=== PATIENT | female | born 2000 | race Caucasian/White ===

== ENCOUNTER 2023-05-03 19:17 | Emergency (ER) | payer SELFPAY ==
[2023-05-03 19:51] LABS: #Basophils 0.1 10x3/uL (0.0-0.2); #Eosinphils 0.1 10x3/uL (0.0-0.5); #Monocytes 0.6 10x3/uL (0.0-1.1); #Neutrophils 6.4 10x3/uL (1.5-8.4); %Basophils 0.7 % (0.0-2.0); %Eosinophils 0.7 % (0.0-6.0); %Lymphocytes 34.3 % (18.0-47.0); %Monocytes 5.5 % (0.0-10.0); %Neutrophils 57.2 % (40.0-75.0); Hematocrit 41.4 % (34.9-44.5); Hemoglobin 14.1 g/dL (12.0-15.5); Mean Corpuscular HGB CONC 34.1 g/dL (32.0-36.0); Mean Platelet Volume 8.2 fl (7.4-10.4); Platelet Count 479 10x3/uL (150-450); RBC Distribution Width 12.7 % (11.5-14.5); Red Blood Cell (RBC) Count 4.87 10x6/uL (3.90-5.03); White Blood Cell (WBC) Count 11.2 10x3/uL (3.5-10.5)
[2023-05-03 20:00] LABS: ALT (SGPT) 40 U/L (8-55); AST (SGOT) 31 U/L (5-34); Acetaminophen Less than 10 mcg/mL (10.0-30.0); Albumin 4.7 g/dL (3.5-5.0); Alcohol 158.2 mg/dL (Less than 10); Alcohol 158.3 mg/dL (Less than 10); Alkaline Phosphatase 96 U/L (40-110); Anion Gap 18 mmol/L (10-20); BUN (Urea Nitrogen) 7 mg/dL (7.0-18.7); Bilirubin, Total 0.3 mg/dL (0.2-1.2); Calc. Creatinine Clearance 0 mL/min (70-130); Calcium 9.2 mg/dL (7.8-10.44); Carbon Dioxide 16 mmol/L (22-29); Chloride 108 mmol/L (98-107); Estimated GFR 115; Globulin 3.5 g/dL (2.4-3.5); Glucose 90 mg/dL (70-105); Protein, Total 8.2 g/dL (6.0-8.3); Salicylate Less than 8.0 mg/dL (15.0-30.0); Sodium 138 mmol/L (136-145)
[2023-05-03 20:02] LABS: Bilirubin Neg (Negative); Blood, Urine 250 (Negative); Clarity Clear (Clear); Glucose, Urine (Dipstick) Normal (Negative); Ketone, Urine Negative (Negative); Leukocyte Negative (Negative); Nitrite Negative (Negative); Protein, Urine (Dipstick) 15 mg/dl (Neg-Trace); Urobilinogen Normal mg/dL (Less than 2)
[2023-05-03 20:10] LABS: Amphetamine Detected (NotDetected); Barbiturates Screen Not Detected (NotDetected); Benzodiazepine Screen Not Detected (NotDetected); Cocaine Metabolite Screen Not Detected (NotDetected); Methadone Not Detected (NotDetected); Methamphetamine Detected (NotDetected); Opiate Screen Not Detected (NotDetected); Oxycodone Screen Not Detected (NotDetected); Phencyclidine (PCP) Not Detected (NotDetected); THC/Cannabinoid Screen Not Detected (NotDetected); Tricyclic Screen Not Detected (NotDetected)
[2023-05-03 20:11] LABS: Bacteria/HPF 1+ HPF (None Seen); CAUTI Indications for Culture Dysuria,urgency,freq; RBC/HPF 0-3 HPF (0-3); Squamous Epithelial 0-3 HPF (0-3); Urine Culture Reflex No No; WBC/HPF 0-3 HPF (0-3)
[2023-05-03] MEDS ORDERED: Nicotine 7 MG PATCH TOP SCH (21:15)
[2023-05-03] MEDS ORDERED: Lorazepam 0.5 MG TAB ONE (21:43)
[2023-05-04] MEDS ORDERED: Nicotine 14 MG PATCH TOP SCH (02:00)
== END 2023-05-04 10:35 | disposition home or self-care (01) ==
LOC: CSHERS 19:17
DX: F10.129 Alcohol abuse with intoxication, unspecified (principal); F32.A Depression, unspecified; F17.290 Nicotine dependence, other tobacco product, uncomplicated
CPT/HCPCS: 36415; 80053; 80306; 80307; 81001; 85025; 93005

== ENCOUNTER 2024-07-05 20:43 | Emergency (ER) | payer OTHER, SELFPAY ==
[2024-07-05] MEDS ORDERED: Benzonatate 100 MG CAP ONE (21:17)
== END 2024-07-05 22:00 | disposition home or self-care (01) ==
LOC: CSHERS 20:43
DX: J06.9 Acute upper respiratory infection, unspecified (principal); F17.210 Nicotine dependence, cigarettes, uncomplicated
CPT/HCPCS: 87428; 99283